=== PATIENT | female | born 1985 | race Caucasian/White ===

== ENCOUNTER 2022-11-12 14:33 | Emergency (ER) | payer BC, SELFPAY ==
[2022-11-12 14:43] VITALS: BP 120/75; PULSE 64; RESP 18; TEMP 36.2; O2SAT 100
--- NOTE | 2022-11-12 15:01 | ED.URI ---
HPI - URI/Sore Throat General Chief Complaint: Upper Respiratory Infection Stated Complaint: Congestion/Sore Throat Source: patient and RN notes reviewed Limitations: no limitations History of Present Illness HPI Narrative: patient is a 37-year-old female who presents to the [facility] with complaints of sore throat, headache, ear pain, and congestion. Patient states that the congestion and headache started 3 days ago. States that the sore throat started yesterday and worsened this morning. She denies known fevers. Denies chest pain or shortness of breath. Denies abdominal pain, nausea, vomiting, diarrhea. Related Data Home Medications Medication Instructions Recorded Confirmed escitalopram oxalate 10 mg tablet mg 11/12/22 Allergies Allergy/AdvReac Type Severity Reaction Status Date / Time No Known Allergies Allergy Verified 11/12/22 14:52 Review of Systems Review of Systems: CONSTITUTIONAL: Denies fever, chills, or sweats. EYES: Denies visual changes, redness, or discharge. ENT: Reports sore throat and nasal congestion. Reports bilateral ear pain. CARDIOVASCULAR: Denies chest pain, palpitations, or edema. RESPIRATORY: Denies cough or dyspnea. GASTROINTESTINAL: Denies abdominal pain, nausea, vomiting, or diarrhea. GENITOURINARY: Denies dysuria or hematuria. SKIN: Denies rash or itching. MUSCULOSKELETAL: Denies back pain, joint pain, or myalgia. NEUROLOGIC: Reports headache, but denies numbness or weakness. Pertinent positives per HPI. PMFSH Comments At the time of my signature, I reviewed and agree with the nursing past medical, surgical, social, and family history. There is no relevant family history pertinent to the patient complaint. Exam Narrative: GENERAL: This is a well-nourished, well-developed patient, in no apparent distress. HEAD: normocephalic, atraumatic. EYES: Sclera clear/white. Vision is grossly intact. EARS: External ears normal, auditory canals clear and without drainage, TMs normal without perforation. Hearing grossly intact. NOSE: External nose normal. + congestion. THROAT: Mucous membranes moist, oropharyngeal erythema without exudate. NECK: Neck supple, non-tender without lymphadenopathy, masses or thyromegaly. CARDIOVASCULAR: Regular rate and rhythm without murmurs, gallops, or rubs. RESPIRATORY: Clear to auscultation. Breath sounds equal bilaterally. No wheezes, rales, or rhonchi. GASTROINTESTINAL: Abdomen soft, non-tender, nondistended. Bowel sounds are active. No hepato-splenomegaly, or palpable masses. No guarding. SKIN: warm, intact with no suspicious lesions or rash, good texture and turgor. NEURO: awake, alert, and oriented to person, place and time. There were no obvious focal neurologic abnormalities. Course Course Level of Care: Express Care Visit Vital Signs Vital signs: Vital Signs Temperature 97.2 F L 11/12/22 14:43 Pulse Rate 64 11/12/22 14:43 Respiratory Rate 18 11/12/22 14:43 Blood Pressure 120/75 11/12/22 14:43 Pulse Oximetry 100 11/12/22 14:43 Oxygen Delivery Room Air 11/12/22 14:43 Temperature 97.2 F L 11/12/22 14:43 Pulse Rate 64 11/12/22 14:43 Respiratory Rate 18 11/12/22 14:43 Blood Pressure 120/75 11/12/22 14:43 Pulse Oximetry 100 11/12/22 14:43 Oxygen Delivery Room Air 11/12/22 14:43 Reviewed MDM - URI/Sore Throat MDM Narrative Medical decision making narrative: Rapid strep is negative in the office; however we will send to the lab for confirmation; there is a small percentage chance that it can come back positive; if it is, we will call you in 2-3days; and your prescription will be call in to your pharmacy. However, there is NO indication for antibiotic at this time. -Increase your fluids and Vitamin C. -Oral rinses such as: Salt water gargles and/or may use topical anesthetic (eg. Chloraseptic spray) or lozenges to relieve dryness or throat pain. -Take tylenol and ibuprofen as needed for pain a
== END 2022-11-12 15:05 | disposition home or self-care (01) ==
PROVIDERS: Emergency Provider Nurse Practitioner
DX: J02.0 Streptococcal pharyngitis (principal)
CPT/HCPCS: 87081; 87147; 87880; 99213; G0463

== ENCOUNTER 2024-02-17 20:19 | Emergency (ER) | payer BC, SELFPAY ==
--- NOTE | ~2024-02-17 | XR_ITS ---
EXAMINATION: XR ankle RT min 3V DATE: 02/17/2024 21:07 INDICATION: Right ankle injury. TECHNIQUE: 3 views of right ankle were obtained. COMPARISON: None. FINDINGS: Alignment is normal. There is a fragment of ossification distal to lateral malleolus. There is mild midfoot osteoarthritis. There are enthesophytes at the posterior and plantar aspects of calc aneal tuberosity. IMPRESSION: 1. Heterotopic ossification distal to lateral malleolus, which may be an acute avulsion fracture or a chronic finding. Reviewed, dictated and finalized at location A.
[2024-02-17 20:24] VITALS: BP 161/93; PULSE 99; RESP 16; TEMP 36.4; O2SAT 100
--- NOTE | 2024-02-18 00:12 | ED.LOWEXIN ---
HPI - Extremity Injury (Lower) General Chief Complaint: Extremity Injury, Lower Stated Complaint: R ankle pain Time Seen by Provider: 02/17/24 23:12 History of Present Illness HPI Narrative: 38-year-old female presenting with right ankle pain. States that she stepped backwards off a curb and twisted her right ankle. Had immediate pain in her right ankle. She is unable to walk so she borrowed some crutches from her sister. Denies further injuries or complaints. Related Data Home Medications Medication Instructions Recorded Confirmed escitalopram oxalate 10 mg tablet mg 11/12/22 Allergies Allergy/AdvReac Type Severity Reaction Status Date / Time No Known Allergies Allergy Verified 11/12/22 14:52 Review of Systems Review of Systems: All systems reviewed & are unremarkable except as noted in HPI and below Exam Narrative: GENERAL: Well-appearing, in no acute distress, pleasant cooperative HEAD: Normocephalic, atraumatic. EYES: PERRLA and EOMI. ENT: Grossly unremarkable NECK: Supple. CHEST: No respiratory distress. HEART: Regular rate and rhythm EXTREMITIES: tender over R lateral malleolus; neurovascularly intact SKIN: Warm, dry, no rash. NEURO: No focal deficits. Alert and oriented x3. PSYCH: Normal mood and affect. Course Vital Signs Vital signs: Vital Signs Temperature 97.6 F 02/17/24 20:24 Pulse Rate 99 02/17/24 20:24 Respiratory Rate 16 02/17/24 20:24 Blood Pressure 161/93 H 02/17/24 20:24 Pulse Oximetry 100 02/17/24 20:24 Temperature 97.6 F 02/17/24 20:24 Pulse Rate 87 02/18/24 01:02 Respiratory Rate 15 02/18/24 01:02 Blood Pressure 142/60 H 02/18/24 01:02 Pulse Oximetry 100 02/18/24 01:02 MDM - Extremity Injury (Lower) MDM Narrative Medical decision making narrative: 38-year-old female presenting with right ankle pain after twisting it. Vitals stable. Exam remarkable for the above. X-ray of the right ankle shows possible acute avulsion fracture. Patient already has crutches, will wrap her in an Rafiq wrap. Advised that she may buy a walking boot over the counter. Discussed appropriate supportive care and PCP follow-up. Appropriate return precautions given. Patient is agreeable with this plan. Discharged in stable condition. Differential Diagnosis Differential diagnosis: Likely ankle sprain and strain and ankle fracture Medical Records Attestation: I reviewed the patient's medical records. Imaging Data Radiologist's impression: ITS Impressions Ankle X-Ray 02/17/24 21:08 IMPRESSION: 1. Heterotopic ossification distal to lateral malleolus, which may be an acute avulsion fracture or a chronic finding. Critical Care Time Critical Care Time Critical Care Time: No Discharge Plan Discharge Clinical Impression: Avulsion fracture of distal fibula Patient Disposition: Home, Self-Care Condition: Stable Instructions: Antibiotic Form, Ankle Fracture (ED) Additional Instructions: The x-ray today shows a tiny avulsion fracture involving your right ankle. We have placed you in a splint but you may also purchase a walking boot over the counter and use it instead. Use the crutches to keep weight off the foot. Follow-up within 1-2 weeks with your PCP. Tylenol and ibuprofen for pain. If your symptoms worsen or other concerning symptoms arise, please return to the ER. Prescriptions: No Action escitalopram oxalate 10 mg tablet amoxicillin 500 mg tablet 1,000 mg PO DAILY 10 Days Qty: 20 0RF Follow-up/Referrals: PHYSICIAN NOT ON STAFF,NONSTAFF [Primary Care Provider] -
[2024-02-18] MEDS: ACETAMINOPHEN 500 MG TABLET 1000 MG PO (00:40)
[2024-02-18 01:02] VITALS: BP 142/60; PULSE 87; RESP 15; O2SAT 100
== END 2024-02-18 01:02 | disposition home or self-care (01) ==
PROVIDERS: Emergency Provider Emergency Medicine
DX: S82.831A Other fracture of upper and lower end of right fibula, initial encounter for closed fracture (principal); X50.1XXA Overexertion from prolonged static or awkward postures, initial encounter
CPT/HCPCS: 29515; 73610; 99284; A9270